=== PATIENT | male | born 1995 | race Caucasian/White ===

== ENCOUNTER 2020-11-14 17:54 | Emergency (ER) | payer OTHER, SELFPAY ==
--- NOTE | ~2020-11-14 | XR_ITS ---
EXAMINATION: XR CHEST CLINICAL INFORMATION: Cough COMPARISON: None TECHNIQUE: 2 views of the chest were obtained. FINDINGS: The heart and pulmonary vessels appear normal. The exam is unremarkable aside from a subtle area of increased patchy density seen in the right infrahilar region which may represent an early infiltrate, possibly in the right middle lobe. XR/XR chest 2V IMPRESSION: Subtle right middle lobe infiltrate.
--- NOTE | ~2020-11-14 | CT_ITS ---
EXAMINATION: CT ABDOMEN AND PELVIS WITHOUT CONTRAST CLINICAL INFORMATION: Abdominal pain. Weight loss. COMPARISON: None TECHNIQUE: Multidetector volumetric imaging was performed from the superior aspect of the liver through the pubic symphysis. Sagittal and coronal reformatted images were obtained on the technologist's workstation. This CT examination was performed using dose optimization techniques as appropriate, variously including the following: *Automated exposure control *Adjustment of mA and/or kV according to patient size (this includes techniques or standardized protocols for targeted exams where dose is matched to indication/reason for exam; i.e. extremities or head) *Use of iterative reconstruction technique DLP: 404 mGy-cm FINDINGS: LUNG BASES: The visualized lung bases are unremarkable. LIVER, GALLBLADDER, AND BILIARY TREE: The liver is normal in size, shape, and attenuation. No focal hepatic lesion or biliary ductal dilatation is present. The gallbladder is unremarkable with no evidence of radiopaque gallstones, gallbladder wall thickening, or obvious pericholecystic inflammatory changes. PANCREAS: Unremarkable. SPLEEN: Unremarkable. ADRENAL GLANDS: Unremarkable. KIDNEYS AND URETERS: The kidneys are normal in size, shape, and attenuation. No hydronephrosis, hydroureter, or calculi seen. No perinephric stranding. BLADDER: Unremarkable. GASTROINTESTINAL TRACT: There are scattered diverticula of the colon. There is no diverticulitis. There is no bowel wall thickening /edema. There is no bowel obstruction. There is a moderate to large volume of stool in the colon. The appendix is normal . The small bowel loops are unremarkable. The stomach is normal. There is no hiatal hernia. ABDOMINAL WALL: No significant hernia is appreciated. LYMPH NODES: Normal. VASCULAR: Unremarkable. PELVIC VISCERA: Unremarkable. OSSEOUS STRUCTURES: Unremarkable. CT/CT abdomen pelvis wo con IMPRESSION: No acute abnormality CT scan abdomen pelvis.
[2020-11-14 18:10] VITALS: BP 106/62; PULSE 90; RESP 18; TEMP 36.9; O2SAT 97; BMI 21.8
--- NOTE | 2020-11-14 20:00 | ED.ABDPAIN ---
HPI - Abdominal Pain General Chief Complaint: Abdominal Pain Stated Complaint: parasites? Time Seen by Provider: 11/14/20 22:36 Source: patient Mode of arrival: ambulatory Limitations: no limitations History of Present Illness HPI narrative: [age] year male with no significant medical history presents with 20 lb weight loss, abdominal pain and cramping, right-sided chest pain and has been defecating worms has since shortly after . Patient stated that he ate some raw shellfish, a day or 2 later started with abdominal cramping, diarrhea, and an overall unwell feeling. He has taken pictures of the worms and has concerns that the worms may have traveled throughout his body. MD elicited complaint: abdominal pain Onset (ago): month(s) Pain Consistency: constant Location: diffuse Severity: moderate Quality: cramping and aching Relieving factors: nothing Context: possible food poisoning Related Data Previous Rx's Medication Instructions Recorded azithromycin 500 mg PO DAILY 3 Days #3 tab 11/14/20 cefuroxime axetil 500 mg PO Q12H 7 Days #14 tab 11/14/20 praziquantel 1,724 mg PO TID 2 Days #18 tab 11/14/20 Allergies Allergy/AdvReac Type Severity Reaction Status Date / Time No Known Allergies Allergy Verified 11/14/20 18:13 Review of Systems Review of Systems Constitutional: Positive 20 lb Weight loss, No Fever, No Chills, No Night Sweats, No Fatigue, No Malaise ENT/Mouth: No Hearing loss, No Ear Pain, No Nasal Congestion, No Sinus Pain, No Hoarseness, No sore throat, No Rhinorrhea, No Swallowing Difficulty Eyes: No Eye Pain, No Swelling, No Redness, No Foreign Body, No Discharge, No Vision Changes Cardiovascular: Positive right-sided Chest Pain, No SOB, No Dyspnea on Exertion, No Orthopnea, No Edema, No Palpitations Respiratory: No Cough, No Sputum, No Wheezing, No Smoke Exposure, No Dyspnea Gastrointestinal: Positive Nausea, no Vomiting, positive Diarrhea, positive abdominal Pain, No Hematochezia, No Melena Genitourinary: no irregular bleeding, No Dysuria, No Urinary Frequency, No Hematuria, No Urinary Incontinence, No Urgency, No Flank Pain, No Urinary Flow Changes, No Hesitancy Musculoskeletal: No joint pain, No Myalgias, No Joint Swelling Skin: No Skin Lesions, No rash Neuro: No Weakness, No Numbness, No Paresthesias, No Loss of Consciousness, No Dizziness, No Headache Psych: No Anxiety/Panic, No Depression, No SI/HI/AH/VH, No Social Issues Heme/Lymph: No Bruising, No Bleeding,No Lymphadenopathy Endocrine: No Polyuria, No Polydipsia, No Temperature Intolerance Yes all other systems are reviewed and are negative Physical Exam Vital Signs: Vital Signs: Last Vital Signs Temp 97.9 F 11/14/20 21:00 Pulse 93 11/14/20 21:13 Resp 18 11/14/20 21:00 BP 123/46 L 11/14/20 21:13 Pulse Ox 98 11/14/20 21:00 Body Mass Index 21.8 Appearance: Alert. Oriented X3. No acute distress. Eyes: Pupils equal, round and reactive to light. EOMI, sclera nonicteric ENT: Pharynx normal. Moist mucous membranes Neck: Normal inspection. Neck supple. CVS: Normal heart rate and rhythm. Pulses normal. Respiratory: No respiratory distress. Breath sounds normal. Abdomen: Soft and diffusely tender throughout lower abdomen Skin: Skin warm and dry. Normal skin color. Normal skin turgor. Extremities: No lower extremity edema. Neuro: No motor deficit. No sensory deficit. Course Course Course Narrative: 24-year-old male with no significant past medical history presents with several months of abdominal pain, 20 lb weight loss, diarrhea, and defecating worms after eating raw shellfish around [facility]. This patient is alert oriented x4, pleasant, well mannered, answering questions without difficulty, no indication of psychiatric concerns at this time, patient does have pictures of worms in his stool. Plan of care is for CBC, Chem 7, stool sample, chest x-ray and CT scan of the abdomen pelvis. CBC, Chem 7, unremarkable. Urinalysis and COVID-[address] scan of the abdomen pelvis is negative for acute findings requiring emergent intervention. Chest x-ray is positive for right middle lobe infiltrates. Stool sample was obtained, will treat for helminthes parasitic infection as well as pneumonia, and cover for Vibrio parahaemolyticus. Multiple discussions with pharmacy staff here as well as [facility] to ensure that medication was available. Detailed description of significant side effects of this medication discussed with the patient. Patient verbalized understanding of and agrees to plan of care to discharge home. He does understand that he must follow up with Gastroenterology as well as adhere to medication regimen. MDM - Abdominal Pain Lab Data Result diagrams: 11/14/20 20:37 11/14/20 20:36 Labs: Lab Results 11/14/20 11/14/20 11/14/20 Range/Units 20:36 20:36 20:37 WBC 5.6 (4.8-10.8) X10*3/uL RBC 4.73 (4.60-5.80) X10*6/uL Hgb 14.9 (14.0-18.0) g/dl Hct 44.0 (42-52) % MCV 93.0 (80-98) fL MCH 31.5 (27.0-33.0) pg MCHC 33.9 (31.0-36.0) g/dl RDW 13.0 (11.0-16.0) % Plt Count 203 (160-400) X10*3/uL MPV 9.0 L (9.4-12.4) fL Immature Gran % (Auto) 0.2 (0.0-0.4) % Neut % (Auto) 45.7 (45-73) % Lymph % (Auto) 41.6 H (20-40) % [place] % (Auto) 9.5 (2-11) % Eos % (Auto) 2.3 (0-4) % Baso % (Auto) 0.7 (0-2) % Lymph # (Auto) 2.3 (1.2-4.9) X10*3/uL [place] # (Auto) 0.5 (0.1-1.2) X10*3/uL Eos # (Auto) 0.1 (0.0-0.4) X10*3/uL Baso # (Auto) 0.0 (0.0-0.2) X10*3/uL Abs Immat Gran (auto) 0.01 (0.00-0.03) X10*3/uL Absolute Neuts (auto) 2.6 (2.0-8.3) X10*3/uL Absolute Nucleated RBC 0.000 (0.0-0.012) X10*3/uL Nucleated RBC % (auto) 0.0 (0.0-0.2) /100WBC PT 11.0 (10.8-13.0) SEC INR 0.9 (0.9-1.1) APTT 31.9 (24.1-38.0) SEC Sodium 141 (135-145) mmol/L Potassium 4.0 (3.3-5.1) mmol/L Chloride 103 (96-108) mmol/L Carbon Dioxide 30 H (22-29) mmol/L Anion Gap 12 (12-20) BUN 11 (9-16) mg/dL Creatinine 0.82 (0.5-1.4) mg/dL Estim Creat Clear Calc 137.7 Estimated GFR > 60 Random Glucose 67 (60-115) mg/dL Calcium 9.2 (8.4-10.2) mg/dL Total Bilirubin 0.4 (0.0-1.0) mg/dL Direct Bilirubin 0.2 (0.0-0.5) mg/dL AST 26 (5-37) U/L ALT 17 (0-40) U/L Alkaline Phosphatase 93 (39-117) U/L Total Protein 7.3 (6.5-8.0) g/dL Albumin 4.5 (3.5-5.0) g/dL Lipase 42 (8-78) U/L Urine Color Urine Appearance Urine pH (5.0-8.0) Ur Specific [place] (1.005-1.025) Urine Protein (NEG-TRACE) MG/DL Urine Glucose (UA) (NEG) MG/DL Urine Ketones (NEG) MG/DL Urine Blood (NEG) Urine Nitrite (NEG) Ur Leukocyte Esterase (NEG) COVID-19 (BOWEN) (Negative) COVID-19 Clin Com 11/14/20 11/14/20 Range/Units 22:29 22:29 WBC (4.8-10.8) X10*3/uL RBC (4.60-5.80) X10*6/uL Hgb (14.0-18.0) g/dl Hct (42-52) % MCV (80-98) fL MCH (27.0-33.0) pg MCHC (31.0-36.0) g/dl RDW (11.0-16.0) % Plt Count (160-400) X10*3/uL MPV (9.4-12.4) fL Immature Gran % (Auto) (0.0-0.4) % Neut % (Auto) (45-73) % Lymph % (Auto) (20-40) % [place] % (Auto) (2-11) % Eos % (Auto) (0-4) % Baso % (Auto) (0-2) % Lymph # (Auto) (1.2-4.9) X10*3/uL [place] # (Auto) (0.1-1.2) X10*3/uL Eos # (Auto) (0.0-0.4) X10*3/uL Baso # (Auto) (0.0-0.2) X10*3/uL Abs Immat Gran (auto) (0.00-0.03) X10*3/uL Absolute Neuts (auto) (2.0-8.3) X10*3/uL Absolute Nucleated RBC (0.0-0.012) X10*3/uL Nucleated RBC % (auto) (0.0-0.2) /100WBC PT (10.8-13.0) SEC INR (0.9-1.1) APTT (24.1-38.0) SEC Sodium (135-145) mmol/L Potassium (3.3-5.1) mmol/L Chloride (96-108) mmol/L Carbon Dioxide (22-29) mmol/L Anion Gap (12-20) BUN (9-16) mg/dL Creatinine (0.5-1.4) mg/dL Estim Creat Clear Calc Estimated GFR Random Glucose (60-115) mg/dL Calcium (8.4-10.2) mg/dL Total Bilirubin (0.0-1.0) mg/dL Direct Bilirubin (0.0-0.5) mg/dL AST (5-37) U/L ALT (0-40) U/L Alkaline Phosphatase (39-117) U/L Total Protein (6.5-8.0) g/dL Albumin (3.5-5.0) g/dL Lipase (8-78) U/L Urine Color YELLOW Urine Appearance CLOUDY Urine pH 7.5 (5.0-8.0) Ur Specific [place] 1.015 (1.005-1.025) Urine Protein NEG (NEG-TRACE) MG/DL Urine Glucose (UA) NEG (NEG) MG/DL Urine Ketones NEG (NEG) MG/DL Urine Blood NEG (NEG) Urine Nitrite NEG (NEG) Ur Leukocyte Esterase NEG (NEG) COVID-19 (BOWEN) Negative (Negative) COVID-19 Clin Com See Note Discharge Plan Discharge Clinical Impression: Helminth infection Pneumonia Qualifiers: Pneumonia type: due to unspecified organism Laterality: right Lung location: middle lobe of lung Qualified Code(s): J18.9 - Pneumonia, unspecified organism Patient Disposition: Home, Self-Care Instructions: Pinworm Infection (ED), Pneumonia (ED) Additional Instructions: You were evaluated for abdominal pain, right sided chest pain, and suspected parasitic infection. We prescribed praziquantel, this medication will not arrive to the pharmacy until Wednesday. Please take 3 tablets 3 times a day for 2 days. These tablets must be taken 8 hours apart. We are treating you for pneumonia to the right middle lobe. Please take azithromycin and cefuroxime as directed. I prescribed the azithromycin in a manner to treat Vibrio parahaemolyticus, which is a bacterial infection that occurs after eating raw or undercooked shellfish. Please follow-up with taping foreman. It is highly recommended that you have a colonoscopy. Thank you for choosing this emergency department for evaluation. Please follow-up with primary care physician as needed. Return to the emergency department for any new, concerning, or worsening symptoms. Prescriptions: New azithromycin 500 mg tablet 500 mg PO DAILY 3 Days Qty: 3 RF: 0 cefuroxime axetil 500 mg tablet 500 mg PO Q12H 7 Days Qty: 14 RF: 0 praziquantel 600 mg tablet 1,724 mg PO TID 2 Days Qty: 18 RF: 0 Referrals: Nanci Bailey MD [Physician] - 2 days (Abdominal pain, 20 lb weight loss, suspected parasitic infection.) Stand Alone Forms: Work/School Release Interventions: ED Discharge Assessment Last Done: 11/14/20 23:17 Discharge Date/Time: 11/14/20 23:19 [facility] Past Medical History Attestation statement: The following information was validated with the patient. Source: old records reviewed Social History Social History Advance Directives: No Advance Directives Information Provided: No
[2020-11-14 20:41] LABS: MANUAL DIFF FLAG NO
[2020-11-14 20:43] LABS: Basophils Percent Auto 0.7 % (0-2); Eosinophils Absolute Auto 0.1 X10*3/uL (0.0-0.4); Eosinophils Percent Auto 2.3 % (0-4); Hemoglobin 14.9 g/dl (14.0-18.0); Imm Gran Abs Auto 0.01 X10*3/uL (0.00-0.03); Imm Gran Pct Auto 0.2 % (0.0-0.4); Lymphocytes Absolute Auto 2.3 X10*3/uL (1.2-4.9); Lymphocytes Percent Auto 41.6 % (20-40); Mean Corpuscular HGB Conc 33.9 g/dl (31.0-36.0); Mean Corpuscular Hemoglobin 31.5 pg (27.0-33.0); Monocytes Absolute Auto 0.5 X10*3/uL (0.1-1.2); Monocytes Percent Auto 9.5 % (2-11); Neutrophils Absolute Auto 2.6 X10*3/uL (2.0-8.3); Neutrophils Percent Auto 45.7 % (45-73); Platelet Count 203 X10*3/uL (160-400); Red Blood Count 4.73 X10*6/uL (4.60-5.80); White Blood Count 5.6 X10*3/uL (4.8-10.8)
[2020-11-14 20:49] LABS: INTERNATIONAL NORM RATIO 0.9 (0.9-1.1)
[2020-11-14 20:52] LABS: Partial Thromboplastin Time 31.9 SEC (24.1-38.0)
[2020-11-14 21:00] VITALS: BP 104/53; PULSE 68; RESP 18; TEMP 36.6; O2SAT 98
[2020-11-14 21:08] VITALS: BP 106/51; PULSE 70
[2020-11-14 21:08] LABS: Alanine Aminotransferase 17 U/L (0-40); Albumin Level 4.5 g/dL (3.5-5.0); Alkaline Phosphatase 93 U/L (39-117); Anion Gap 12 (12-20); Aspartate Amino Transferase 26 U/L (5-37); Bilirubin Direct 0.2 mg/dL (0.0-0.5); Bilirubin Total 0.4 mg/dL (0.0-1.0); Blood Urea Nitrogen 11 mg/dL (9-16); Calcium 9.2 mg/dL (8.4-10.2); Carbon Dioxide 30 mmol/L (22-29); Chloride 103 mmol/L (96-108); Creatinine Clr Calc Pharmacy 137.7; Estimated Glomerular Filt Rate > 60; Glucose Random 67 mg/dL (60-115); Lipase 42 U/L (8-78); Sodium 141 mmol/L (135-145); Total Protein 7.3 g/dL (6.5-8.0)
[2020-11-14 21:10] VITALS: BP 92/61; PULSE 91
[2020-11-14 21:13] VITALS: BP 123/46; PULSE 93
[2020-11-14 22:41] LABS: Glucose Urine UA NEG (NEG); Leukocyte Esterase Urine NEG (NEG); Nitrite Urine NEG (NEG); PH 7.5 (5.0-8.0); Specific Gravity - Urine 1.015 (1.005-1.025); Urine Blood NEG (NEG); Urine Ketones NEG (NEG); Urine Protein NEG (NEG-TRACE)
[2020-11-14 22:43] LABS: Appearance Urine CLOUDY; Color Urine YELLOW
[2020-11-14] MEDS: Azithromycin 500 MG TABLET PO (22:53)
[2020-11-14 23:01] LABS: COVID-19 Test Negative (Negative)
== END 2020-11-14 23:19 | disposition home or self-care (01) ==
PROVIDERS: Nurse Practitioner Family; Emergency Provider Emergency Medicine Emergency Medical Services
DX: B80 Enterobiasis (principal); J18.9 Pneumonia, unspecified organism; R07.9 Chest pain, unspecified; Z20.822 Contact with and (suspected) exposure to COVID-19
CPT/HCPCS: 36415; 71046; 74176; 80048; 80076; 81003; 83690; 85025; 85610; 85730; 87045; 87046; 87177; 87209; 87635; 99284

== ENCOUNTER 2021-02-17 10:10 | Emergency (ER) | payer OTHER, SELFPAY ==
--- NOTE | ~2021-02-17 | CT_ITS ---
EXAMINATION: CT ABDOMEN AND PELVIS WITHOUT CONTRAST CLINICAL INFORMATION: Left flank and lower abdominal pain COMPARISON: Previous CT of the abdomen and pelvis November 2020 TECHNIQUE: Multidetector volumetric imaging was performed from the superior aspect of the liver through the pubic symphysis. Sagittal and coronal reformatted images were obtained on the technologist's workstation. This CT examination was performed using dose optimization techniques as appropriate, variously including the following: *Automated exposure control *Adjustment of mA and/or kV according to patient size (this includes techniques or standardized protocols for targeted exams where dose is matched to indication/reason for exam; i.e. extremities or head) *Use of iterative reconstruction technique DLP: 432 mGy-cm FINDINGS: LUNG BASES: The visualized lung bases are unremarkable. LIVER, GALLBLADDER, AND BILIARY TREE: The liver is normal in size, shape, and attenuation. No focal hepatic lesion or biliary ductal dilatation is present. The gallbladder is unremarkable with no evidence of radiopaque gallstones, gallbladder wall thickening, or obvious pericholecystic inflammatory changes. PANCREAS: Unremarkable. SPLEEN: Unremarkable. ADRENAL GLANDS: Unremarkable. KIDNEYS AND URETERS: The kidneys are normal in size, shape, and attenuation. No hydronephrosis, hydroureter, or calculi seen. No perinephric stranding. BLADDER: Unremarkable. GASTROINTESTINAL TRACT: There is stool throughout the colon suggestive of constipation. The small and large bowel are otherwise unremarkable. The appendix is unremarkable. ABDOMINAL WALL: No significant hernia is appreciated. LYMPH NODES: Normal. VASCULAR: Unremarkable. PELVIC VISCERA: Unremarkable. OSSEOUS STRUCTURES: There may be a transitional vertebral body segment or 6 lumbar-type vertebral bodies. Bony structures are otherwise unremarkable. CT/CT abdomen pelvis wo con IMPRESSION: Large amount of stool in colon suggestive of constipation otherwise unremarkable exam.
[2021-02-17 10:15] VITALS: BP 126/76; PULSE 68; O2SAT 98
--- NOTE | 2021-02-17 10:18 | ED_ITS ---
HPI - Abdominal Pain General Chief Complaint: Abdominal Pain Stated Complaint: ABD PAIN W/VOMITING SINCE T-1 Time Seen by Provider: 02/17/21 10:18 Source: patient Mode of arrival: EMS Limitations: no limitations History of Present Illness HPI narrative: Patient with left lower pain into back. Recent treatment for t ape worms. MD elicited complaint: abdominal pain Onset (ago): hour(s) Pain Consistency: constant Location: LLQ and L flank Severity: moderate Quality: cramping Radiation: LLQ Exacerbating factors: nothing Relieving factors: nothing Associated symptoms: nausea and vomiting Related Data Previous Rx's Medication Instructions Recorded azithromycin 500 mg PO DAILY 3 Days #3 tab 11/14/20 cefuroxime axetil 500 mg PO Q12H 7 Days #14 tab 11/14/20 praziquantel 1,724 mg PO TID 2 Days #18 tab 11/14/20 ondansetron HCl [Zofran] 4 mg PO Q8H PRN #10 tab 02/17/21 psyllium seed (sugar) [Metamucil 1 tbsp PO DAILY #1254 g 02/17/21 (sugar)] Allergies Allergy/AdvReac Type Severity Reaction Status Date / Time No Known Allergies Allergy Verified 11/14/20 18:13 Review of Systems Constitutional: Reports no additional constitutional complaints Eyes: Reports no additional eye complaints Denies dizziness Cardiovascular: Reports no additional cardiovascular complaints Respiratory: Reports as per HPI Gastrointestinal: Reports no additional gastrointestinal complaints Musculoskeletal: Reports no additional musculoskeletal complaints Skin/Breast: Denies rash Reports system reviewed and no additional complaints, except as documented, Denies dizziness and Denies Sensory deficit (Neuro) Psychiatric: Denies anxiety Physical Exam Vital Signs: Vital Signs: Last Vital Signs Temp 98.5 F 02/17/21 12:42 Pulse 65 02/17/21 12:42 Resp 17 02/17/21 12:42 BP 131/67 02/17/21 12:42 Pulse Ox 98 02/17/21 12:42 Body Mass Index 19.2 Const: General: healthy appearing Nutritional Appearance: average body habitus Orientation/consciousness: oriented to person and patient oriented x3 Limitations: no limitations HENMT: Head: Yes normal to inspection Ears: external ears normal General nose exam: Normal external nose present Mouth: Normal oral and palatal mucosa present and oropharynx normal Throat: Yes posterior oropharynx normal Eyes: General: appearance normal, both eyes and all related structures Neck: Other: supple Neck: Yes normal visual inspection Chest: Chest palpation & inspection: normal inspection of the chest Resp: Auscultation: clear to auscultation bilaterally Cardio: Jugular venous distension: no JVD Rate: regular rate Rhythm: regular rhythm Heart sounds: S1 normal heart sound present and S2 normal heart sound present GI: Inspection: Yes normal to inspection Palpation (GI): Soft to palpation, nontender and No hepatosplenomegaly present Auscultation: normal bowel sounds Back/Spine/Pelvis: Other: left flank pain on palpation Skin: General skin exam: no rashes or lesions noted Neuro: General: oriented to person and patient oriented x3 Cranial nerves: Yes CN's II-XII intact bilaterally Motor exam (neuro): 5/5 motor strength present throughout Sensory Exam: No Sensory deficit (Neuro) Extrem: General: Yes normal to inspection Psych: Appearance: grossly normal Course Course Course Narrative: no evidence of UTI, kidney stones or infection. CT showed a lot of stool, will start metamucil and zofran for vomiting and dc home MDM - Abdominal Pain Lab Data Result diagrams: 02/17/21 11:21 02/17/21 11:21 Labs: Lab Results 02/17/21 02/17/21 02/17/21 Range/Units 11:21 11:21 11:21 WBC 8.6 (4.8-10.8) X10*3/uL RBC 4.18 L (4.60-5.80) X10*6/uL Hgb 13.3 L (14.0-18.0) g/dl Hct 39.0 L (42-52) % MCV 93.3 (80-98) fL MCH 31.8 (27.0-33.0) pg MCHC 34.1 (31.0-36.0) g/dl RDW 12.5 (11.0-16.0) % Plt Count 149 L D (160-400) X10*3/uL MPV 9.4 (9.4-12.4) fL Immature Gran % (Auto) 0.2 (0.0-0.4) % Neut % (Auto) 78.4 H (45-73) % Lymph % (Auto) 12.3 L (20-40) % [place] % (Auto) 8.6 (2-11) % Eos % (Auto) 0.2 (0-4) % Baso % (Auto) 0.3 (0-2) % Lymph # (Auto) 1.1 L (1.2-4.9) X10*3/uL [place] # (Auto) 0.7 (0.1-1.2) X10*3/uL Eos # (Auto) 0.0 (0.0-0.4) X10*3/uL Baso # (Auto) 0.0 (0.0-0.2) X10*3/uL Abs Immat Gran (auto) 0.02 (0.00-0.03) X10*3/uL Absolute Neuts (auto) 6.8 (2.0-8.3) X10*3/uL Absolute Nucleated RBC 0.000 (0.0-0.012) X10*3/uL Nucleated RBC % (auto) 0.0 (0.0-0.2) /100WBC Sodium 139 (135-145) mmol/L Potassium 3.4 (3.3-5.1) mmol/L Chloride 104 (96-108) mmol/L Carbon Dioxide 27 (22-29) mmol/L Anion Gap 11 L (12-20) BUN 13 (9-16) mg/dL Creatinine 0.75 (0.5-1.4) mg/dL Estim Creat Clear Calc 127.7 Estimated GFR > 60 Random Glucose 99 D (60-115) mg/dL Calcium 8.3 L D (8.4-10.2) mg/dL Urine Color YELLOW Urine Appearance CLOUDY Urine pH >= 9.0 H (5.0-8.0) Ur Specific [place] 1.010 (1.005-1.025) Urine Protein 1+ H (NEG-TRACE) MG/DL Urine Glucose (UA) NEG (NEG) MG/DL Urine Ketones 15 (NEG) MG/DL Urine Blood NEG (NEG) Urine Nitrite NEG (NEG) Ur Leukocyte Esterase NEG (NEG) Urine RBC 0-2 (0) /HPF Urine WBC 0 (0-4) /HPF Ur Squamous Epith Cells NONE /LPF Amorphous Sediment 2+ /LPF Urine Bacteria TRACE /LPF Imaging Data CT scan - abdomen: Radiologist's impression: IMPRESSION: Large amount of stool in colon suggestive of constipation otherwise unremarkable exam. Discharge Plan Discharge Clinical Impression: Constipation Qualifiers: Constipation type: unspecified constipation type Qualified Code(s): K59.00 - Constipation, unspecified Vomiting Qualifiers: Vomiting type: unspecified Vomiting Intractability: non-intractable Nausea presence: with nausea Qualified Code(s): R11.2 - Nausea with vomiting, unspecified Patient Disposition: Home, Self-Care Instructions: Constipation (ED), Acute Nausea and Vomiting (ED) Prescriptions: New Metamucil (sugar) Powder 1 tbsp PO DAILY Qty: 1254 RF: 0 ondansetron HCl [Zofran] 4 mg tablet 4 mg PO Q8H PRN (Reason: nausea and vomiting) Qty: 10 RF: 0 No Action azithromycin 500 mg tablet 500 mg PO DAILY 3 Days Qty: 3 RF: 0 cefuroxime axetil 500 mg tablet 500 mg PO Q12H 7 Days Qty: 14 RF: 0 praziquantel 600 mg tablet 1,724 mg PO TID 2 Days Qty: 18 RF: 0 PMFSH Social History Social History Advance Directives: No Advance Directives Information Provided: No
[2021-02-17 10:19] VITALS: BP 120/78; PULSE 65; RESP 15; TEMP 36.9; O2SAT 99; BMI 19.2
[2021-02-17] MEDS: Ketorolac Tromethamine 30 MG/ML VIAL IVPUSH (11:12)
[2021-02-17 11:31] LABS: MANUAL DIFF FLAG NO
[2021-02-17 11:32] LABS: Basophils Percent Auto 0.3 % (0-2); Eosinophils Percent Auto 0.2 % (0-4); Hemoglobin 13.3 g/dl (14.0-18.0); Imm Gran Abs Auto 0.02 X10*3/uL (0.00-0.03); Imm Gran Pct Auto 0.2 % (0.0-0.4); Lymphocytes Absolute Auto 1.1 X10*3/uL (1.2-4.9); Lymphocytes Percent Auto 12.3 % (20-40); Mean Corpuscular HGB Conc 34.1 g/dl (31.0-36.0); Mean Corpuscular Hemoglobin 31.8 pg (27.0-33.0); Mean Corpuscular Volume 93.3 fL (80-98); Mean Platelet Volume 9.4 fL (9.4-12.4); Monocytes Absolute Auto 0.7 X10*3/uL (0.1-1.2); Monocytes Percent Auto 8.6 % (2-11); Neutrophils Absolute Auto 6.8 X10*3/uL (2.0-8.3); Neutrophils Percent Auto 78.4 % (45-73); Platelet Count 149 X10*3/uL (160-400); Red Blood Count 4.18 X10*6/uL (4.60-5.80); Red Cell Distribution Width 12.5 % (11.0-16.0); White Blood Count 8.6 X10*3/uL (4.8-10.8)
[2021-02-17 11:34] LABS: Glucose Urine UA NEG (NEG); Leukocyte Esterase Urine NEG (NEG); Nitrite Urine NEG (NEG); PH >= 9.0 (5.0-8.0); Urine Blood NEG (NEG); Urine Ketones 15 MG/DL (NEG)
[2021-02-17 11:38] LABS: Urine Protein 1+ MG/DL (NEG-TRACE)
[2021-02-17 11:39] LABS: Appearance Urine CLOUDY; Color Urine YELLOW
[2021-02-17] MEDS: 0.9 % Sodium Chloride 1,000 ML 999 ML IVCONT (11:39)
[2021-02-17 11:45] LABS: Amorphous Sediment Urine 2+ /LPF; Bacteria Urine TRACE /LPF; RBC Urine 0-2 /HPF (0); WBC Urine 0 /HPF (0-4)
[2021-02-17 12:02] LABS: Anion Gap 11 (12-20); Blood Urea Nitrogen 13 mg/dL (9-16); Calcium 8.3 mg/dL (8.4-10.2); Carbon Dioxide 27 mmol/L (22-29); Chloride 104 mmol/L (96-108); Creatinine Clr Calc Pharmacy 127.7; Estimated Glomerular Filt Rate > 60; Glucose Random 99 mg/dL (60-115); Potassium 3.4 mmol/L (3.3-5.1); Sodium 139 mmol/L (135-145)
[2021-02-17 12:42] VITALS: BP 131/67; PULSE 65; RESP 17; TEMP 36.9; O2SAT 98
== END 2021-02-17 14:00 | disposition home or self-care (01) ==
PROVIDERS: Emergency Provider Emergency Medicine
DX: K59.00 Constipation, unspecified (principal); R11.2 Nausea with vomiting, unspecified
CPT/HCPCS: 36415; 74176; 80048; 81001; 85025; 96360; 96361; 96374; 96375; 99284; J1885

== ENCOUNTER 2024-07-28 18:36 | Emergency (ER) | payer OTHER, SELFPAY ==
[2024-07-28 18:43] VITALS: BP 121/70; PULSE 93; RESP 16; TEMP 36.8; O2SAT 97; BMI 23.9
--- NOTE | 2024-07-28 18:48 | ED.UPPEXIN ---
HPI - Extremity Injury (Upper) General Chief Complaint: Wound/Laceration Stated Complaint: Laceration wound in left index finger Time Seen by Provider: 07/28/24 18:53 Source: patient Mode of arrival: ambulatory Limitations: no limitations History of Present Illness HPI narrative: Patient is a 28-year-old who presents to the emergency department Reports on Wednesday07/24/2024 accidentally drilled a screw into the ulnar aspect of the distal tip of his right 2nd digit. States that he noticed a small white tissue that is coming out of the finger. He states that today he thought he was removing a piece of dried skin but believes he may have pulled on the tendon because he had pain that shoots up his finger. He reports that he went to an urgent care prior to arrival, his tetanus vaccine was updated and he received a prescription for an infection, had a x-ray done outpatient, he called his primary care doctor to review the x-ray and he states his primary care doctor told him to come to the emergency department to have a CT or MRI imaging of the finger. Reports that he did not have any pain to the finger until he pulled on this tissue. Related Data Previous Rx's ?Medication ?Instructions ?Recorded azithromycin 500 mg tablet 500 mg PO DAILY 3 days #3 tabs 11/14/20 cefuroxime axetil 500 mg tablet 500 mg PO Q12H 7 days #14 tabs 11/14/20 praziquantel 600 mg tablet 1,724 mg (2.8733 x 600 mg) PO TID 11/14/20 2 days #18 tabs ondansetron HCl 4 mg tablet 4 mg PO Q8H PRN nausea and 02/17/21 (Zofran) vomiting #10 tabs praziquantel 600 mg tablet 1,474 mg (2.4567 x 600 mg) PO TID 02/17/21 1 day #8 tabs psyllium seed (sugar) oral powder 1 tbsp PO DAILY #1,254 grams 02/17/21 (Metamucil (sugar) oral powder) Allergies Allergy/AdvReac Type Severity Reaction Status Date / Time No Known Allergies Allergy Verified 07/28/24 18:48 Review of Systems Review of Systems: Yes all other systems are reviewed and are negative PMFSH Past Medical History Attestation statement: The following information was validated with the patient. Source: old records reviewed Physical Exam Vital Signs: Vital Signs: Last Vital Signs Temp 98.2 F 07/28/24 18:43 Pulse 93 07/28/24 18:43 Resp 16 07/28/24 18:43 BP 121/70 07/28/24 18:43 Pulse Ox 97 07/28/24 18:43 O2 Del Method Room Air 07/28/24 18:43 BMI result Body Mass Index 23.9 Appearance: Alert.?Oriented to person, place and time. No acute distress.?Normal affect. CVS: Heart sounds normal. Normal heart rate and rhythm.? Pulses normal.?? Respiratory: No respiratory distress.? Lung sounds clear to auscultation bilaterally?? Skin: Skin warm and dry.? Normal skin color.? Scabbed puncture wound to the ulnar aspect of the left 2nd digit, distal tip palpar aspect. Mild tenderness upon palpation. No surrounding erythema. No pus-like drainage. No fluctuance. Full range of motion to the finger, extension and flexion even against resistance. Neuro: Moves all extremities spontaneously. Sensation intact bilaterally. Ambulates with normal steady gait. Medical Decision Making Medical Decision Making MDM Narrative: Patient is a 28-year-old male presents emergency department for evaluation of a puncture wound to the left index finger as per HPI. Expresses significant concern that there is involvement of the tendon, requesting a CT or MRI as per HPI. Full range of motion even against resistance of the distal tip of the finger. Tetanus vaccination was updated earlier today at urgent care by his account, he received a prescription for an antibiotic was sent to his pharmacy already. No clinical indication for additional radiographic imaging, patient felt strongly and had opposition to leaving the department without pus. My attending Dr. Dey who also evaluated the patient, did not see indication for additional radiographic imaging, discussed with patient possibility for involvement of the tendon sheath which may have been exposed by his report, recommended staying the course of current treatment course of antibiotics, outpatient follow-up with hand specialist should he continue to have any concerns. Differential Diagnosis Differential Diagnoses: The differential diagnosis associated with the presentation includes (See narrative above) External Record Review External record reviewed: Outpatient record Tests considered The following testing was considered but not selected: See narrative above Prescription Management I considered prescription management with: Antibiotic (Previously prescribed) Discharge Plan Discharge Clinical Impression: Puncture wound of finger of left hand Patient Disposition: Home, Self-Care Instructions: Puncture Wound (ED) Additional Instructions: As discussed, it is recommended that you continue the course of antibiotics that was prescribed from the urgent care. If you continue to have pain to the finger, decreased motion to the finger as discussed during our visit today, he should seek re-evaluation with the hand specialist. Contact information for their office has been provided with this discharge. Prescriptions: No Action Metamucil (sugar) Powder 1 tbsp PO DAILY Qty: 1254 0RF ondansetron HCl [Zofran] 4 mg tablet 4 mg PO Q8H PRN (Reason: nausea and vomiting) Qty: 10 0RF praziquantel 600 mg tablet 1,474 mg PO TID 1 Days Qty: 8 0RF azithromycin 500 mg tablet 500 mg PO DAILY 3 Days Qty: 3 0RF cefuroxime axetil 500 mg tablet 500 mg PO Q12H 7 Days Qty: 14 0RF praziquantel 600 mg tablet 1,724 mg PO TID 2 Days Qty: 18 0RF Referrals: Tere Stephens MD [Physician] - Print Language: Croatian
[2024-07-28 19:00] VITALS: BP 121/70; PULSE 93; RESP 16; TEMP 36.8; O2SAT 97
== END 2024-07-28 19:01 | disposition home or self-care (01) ==
PROVIDERS: Emergency Provider Internal Medicine; PCP Internal Medicine
DX: S61.230A Puncture wound without foreign body of right index finger without damage to nail, initial encounter (principal); W31.89XA Contact with other specified machinery, initial encounter; Y93.9 Activity, unspecified; Y92.9 Unspecified place or not applicable; Y99.9 Unspecified external cause status
CPT/HCPCS: 99282

== ENCOUNTER 2024-08-29 14:00 | Outpatient (AMB) | payer OTHER, SELFPAY ==
[2024-08-29 14:08] VITALS: BMI 23.8
--- NOTE | 2024-08-29 14:08 | MHC.OFFVIS ---
Vital Signs 08/29/24 14:08 Height 5 ft 10 in Weight 166 lb BMI 23.8 Intake Visit Reasons: [employer]- ED f/u Left hand lac, DOI 07/24/24 Intake Note: Carlos 28 yr old right hand dominant male presents today as a new patient for and evaluation of his left index finger DOI 07/24/24 s/p ED 07/28/24 visit for evaluation of a puncture wound to the left index finger. States while installing shelves at home he drilled the screw into his finger. Reports he noticed a small white tissue that was coming out of the finger. Next day he thought he was removing a piece of dried skin but believes he may have pulled on the tendon because he had pain that shoots up his finger. Seen at Urgent care where xrays were taken and advise to be seen at a Hospital. Currently states he only has pain when pressure is applied directly on his finger tip. Numbness in his DIP only. States he was RX ABX but did not take any due to losing the pills. Allergies No Known Allergies Allergy (Verified 08/29/24 14:16) HPI HPI [employer]- ED f/u Left hand lac, DOI 07/24/24: Details: Carlos is a 28 year old right hand dominant man who presents with complaints of left index finger pain, S/P puncture wound, DOI: 07/24/24. He was seen in the ED on 07/28/24 and given a course of abx. He says he lost these pills and did not take any Abx, but denies any symptoms of infection. He says he is doing well overall. he has some pain to the tip of his index finger only when pressure is applied. He also complains of some numbness to the [ ] of his index finger. He says he was installing cabinets at home, when he drilled through the wood and into his finger. [facility] Social History (Updated 08/29/24 @ 14:19 by MARSHA Rangel) Current occupational status: employed Current occupation: Marketing Clerk/ rt hand Review of Systems Const All systems reviewed & are unremarkable except as noted in HPI and below Physical Exam Vital Signs: BMI result Body Mass Index 23.8 Const General: cooperative, healthy appearing and no acute distress Orientation/consciousness: patient oriented x3 HEENT Head: Yes normocephalic and Yes atraumatic Eyes EOM: EOMs intact bilaterally Resp Effort & Inspection: normal respiratory effort and able to speak in complete sentences Cardio Jugular venous distension: no JVD Skin General skin exam: turgor normal Rashes: no rashes Neuro General: patient oriented x3 Extrem Other: Evaluation of Left Upper Extremity: The patient is alert, oriented, and in no acute distress He has a healed circular wound measuring approximately 4 mm in diameter on the ulnar pad of his left index finger. The wound went on to heal well with no erythema drainage or evidence of infection. He does have some numbness just distal to this wound over the ulnar tip of the index finger with normal sensation to the radial aspect of the pad and tip of the index finger. No hypersensitivity at this time. Good active flexion of all of his fingers to a fist. He can actively pull his index finger into flexion at the PIP and D IP joints against resistance without pain and with good strength. Good full extension of the digit as well. Cap refill brisk Psych Appearance: grossly normal Affect: normal affect Attitude: cooperative Assessment & Plan Assessment & Plan (1) Puncture wound of finger of left hand: Comment: IF Code(s): S61.239A - Puncture wound without foreign body of unspecified finger without damage to nail, initial encounter Category: Medical (2) Numbness of left hand: Comment: L IF Code(s): R20.0 - Anesthesia of skin Category: Medical Plan Assessment & Plan: 1. Left index finger puncture wound From a drill. DOI: 07/24/24 2. Left index finger ulnar-sided tip numbness, S/P injury I educated him about this injury No intervention is indicated I discussed activity modification to avoid hypersensitivity. He is to massage about his injury gently, and increase this as tolerated Concerning his numbness he understands that this small area involving the ulnar tip of his index finger may or may not recover sensation. He is happy for the information He can follow up prn Scribed for Tere Stephens MD by Sin Martinez, medical device sales, on 08/29/24 at 2:30 PM, EST. Medications: Discontinued azithromycin Discontinued Reason: Patient Completed Course 500 mg PO DAILY 3 days 3 tabs 0RF praziquantel Discontinued Reason: Patient Completed Course 1,724 mg (2.8733 x 600 mg) PO TID 2 days 18 tabs 0RF ondansetron HCl (Zofran) Discontinued Reason: Patient Completed Course 4 mg PO Q8H PRN 10 tabs 0RF nausea and vomiting cefuroxime axetil Discontinued Reason: Patient Completed Course 500 mg PO Q12H 7 days 14 tabs 0RF psyllium seed (sugar) (Metamucil (sugar) oral powder) Discontinued Reason: Patient Completed Course 1 tbsp PO DAILY 1,254 grams 0RF praziquantel Discontinued Reason: Patient Completed Course 1,474 mg (2.4567 x 600 mg) PO TID 1 day 8 tabs 0RF Coding Level of Care Code New Pt Level 3 (00370) Diagnoses Puncture wound of finger of left hand S61.239A Numbness of left hand R20.0
== END 2024-08-29 14:39 | disposition home or self-care (01) ==
PROVIDERS: PCP Internal Medicine; Visit Provider Orthopaedic Surgery
DX: S61.239A Puncture wound without foreign body of unspecified finger without damage to nail, initial encounter (principal); R20.0 Anesthesia of skin
CPT/HCPCS: 99203

== ENCOUNTER → 2024-08-29 14:00 | Outpatient (BNVA) | payer OTHER, SELFPAY | PROVIDERS: PCP Internal Medicine; Visit Provider Orthopaedic Surgery | DX: S61.239A Puncture wound without foreign body of unspecified finger without damage to nail, initial encounter (principal); R20.0 Anesthesia of skin | CPT/HCPCS: 99202 ==